=== PATIENT | male | born 1975 | race Caucasian/White ===

== ENCOUNTER 2024-01-01 21:12 | Emergency (ER) | payer OTHER, BC ==
[~2024-01-01] VITALS: Ht 175.3 cm; Wt 87.0 kg
[2024-01-01 21:27] VITALS: BP 163/100; PULSE 83; O2SAT 97
[2024-01-01] MEDS ORDERED: ketorolac trometh. 30mg/ml inj. IM ONE (21:40)
[2024-01-01] MEDS ORDERED: PSEU-259 PO (22:02)
[2024-01-01] MEDS ORDERED: FLUT16SP2 BOTHNARES (22:02)
[2024-01-01] MEDS: ketorolac tromethamine 15mg/ml inj. IM ONE (22:06)
[2024-01-01 22:09] VITALS: RESP 14
[2024-01-01 22:21] VITALS: TEMP 97.8
== END 2024-01-01 22:29 | disposition home or self-care (01) ==
LOC: ER 21:13
DX: J32.9 Chronic sinusitis, unspecified (principal)
CPT/HCPCS: 96372; 99283; J1885